=== PATIENT | male | born 1990 | race Caucasian/White ===

== ENCOUNTER 2022-03-19 14:46 | Emergency (ER) | payer MEDICAID ==
[~2022-03-19] VITALS: Ht 170.2 cm; Wt 75.0 kg
[~2022-03-19 14:46] MED LIST: NAPR-1154 PO
[2022-03-19 14:47] VITALS: BP 154/88
[2022-03-19] MEDS ORDERED: clindamycin 150mg capsule PO ONE (14:55)
[2022-03-19] MEDS ORDERED: ketorolac trometh inj. 60 MG/2 ML VIAL IM ONE (14:55)
[2022-03-19] MEDS ORDERED: IBUP-1986 PO (14:59)
[2022-03-19] MEDS ORDERED: CLIN-97 PO (14:59)
[2022-03-19] MEDS ORDERED: ketorolac trometh. 30mg/ml inj. IM ONE (15:05)
== END 2022-03-19 15:27 | disposition home or self-care (01) ==
LOC: ER 14:46
DX: K08.89 Other specified disorders of teeth and supporting structures (principal); R22.0 Localized swelling, mass and lump, head; Z87.442 Personal history of urinary calculi; Z72.89 Other problems related to lifestyle; Z79.899 Other long term (current) drug therapy
CPT/HCPCS: 96372; 99283; J1885

== ENCOUNTER 2022-05-08 21:03 | Emergency (ER) | payer MEDICAID ==
[~2022-05-08] VITALS: Ht 170.2 cm; Wt 79.5 kg
[~2022-05-08 21:03] MED LIST changes: +CLIN-97 PO; +IBUP-1986 PO
[2022-05-08 21:36] VITALS: BP 120/74
[2022-05-08] MEDS ORDERED: CLIN300C54 PO (23:16)
== END 2022-05-08 23:32 | disposition home or self-care (01) ==
LOC: ER 21:04
DX: K08.89 Other specified disorders of teeth and supporting structures (principal); Z87.442 Personal history of urinary calculi
CPT/HCPCS: 99283